=== PATIENT | male | born 1960 | race Caucasian/White ===

== ENCOUNTER → 2017-05-24 | Emergency (ER) | payer MEDICAID ==
[~2017-05-24] VITALS: Ht 175.3 cm; Wt 72.6 kg
[~2017-05-24] MED LIST: Acetaminophen 500mg (ES) tab ORAL ONE
[2017-05-24 13:37] VITALS: BP 138/74
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
== END | disposition left against medical advice (07) ==
LOC: EDBD 13:43 → EMR 14:25
DX: M79.661 Pain in right lower leg (principal)
CPT/HCPCS: 99283